=== PATIENT | male | born 1995 | race Caucasian/White ===

== ENCOUNTER 2025-06-11 13:42 | Emergency (ER) | payer MEDICAID ==
[~2025-06-11] VITALS: Ht 180.3 cm; Wt 106.8 kg
[2025-06-11 13:48] VITALS: TEMP 98.2
[2025-06-11] MEDS: ACETAMINOPHEN 500 MG TABLET PO ONE (15:52)
[2025-06-11] MEDS: BACITRACIN 28 GM OINTMENT TP ONE (15:53)
[2025-06-11] MEDS ORDERED: IBUP-1492 PO (16:11)
[2025-06-11 16:13] VITALS: BP 128/64; PULSE 81; RESP 16; O2SAT 100
[2025-06-11] MEDS ORDERED: BACI28.410 TP (16:15)
== END 2025-06-11 16:23 | disposition home or self-care (01) ==
LOC: EMS 13:45
DX: S93.402A Sprain of unspecified ligament of left ankle, initial encounter (principal); S09.90XA Unspecified injury of head, initial encounter; S50.811A Abrasion of right forearm, initial encounter; S50.812A Abrasion of left forearm, initial encounter; F17.210 Nicotine dependence, cigarettes, uncomplicated; V23.49XA Other motorcycle driver injured in collision with car, pick-up truck or van in traffic accident, initial encounter; Y93.89 Activity, other specified; Y92.410 Unspecified street and highway as the place of occurrence of the external cause; Y99.8 Other external cause status
CPT/HCPCS: 70450; 72125; 99284